=== PATIENT | male | born 1945 ===

== ENCOUNTER 2016-08-02 16:59 | Inpatient (IN) | payer MEDICARE ==
[~2016-08-02] VITALS: Ht 170.2 cm; Wt 106.6 kg
[2016-08-02] VITALS (12 sets, daily range): BP systolic 112–136; BP diastolic 59–83
--- NOTE | 2016-08-02 17:00 | NUR ---
ARRIVAL: PT TO 4 VIA EMS. PT AWAKE AND ALERT. NAD. COLOR PINK. LEFT LEG HAS VELCRO BRACE. PT PLACED ON MONITOR AND TRIAGE DONE
--- NOTE | 2016-08-02 17:15 | NUR ---
MD DR FINLEY AT BEDSIDE
--- NOTE | 2016-08-02 17:15 | NUR ---
DR TUSHAR FINLEY IN THE ED AT THIS TIME
[2016-08-02] MEDS ORDERED: NS 1000ML 1,000 ML ONE ×2 (17:22)
--- NOTE | 2016-08-02 17:25 | NUR ---
IV NS STARTED FREE FLOWING
--- NOTE | 2016-08-02 17:27 | NUR ---
OR CREW VAIBHAV MARROQUIN, CALLED OUT THE ENTIRE OR CREW
[2016-08-02] MEDS ORDERED: ROPIVACAINE ONE (17:54)
[2016-08-02] MEDS ORDERED: XYLOCAINE 2%-EPI 1:100,000 ONE (17:54)
[2016-08-02] MEDS ORDERED: ANCEF ONE (18:04)
[2016-08-02] MEDS ORDERED: LACTATED RINGERS 1,000 ML ONE (18:04)
[2016-08-02] MEDS ORDERED: NS 100ML 100 ML IV ONE (18:04)
--- NOTE | 2016-08-02 20:34 | ER.CONS ---
DATE OF SERVICE: 08/02/2016 CHIEF COMPLAINT: Painful left ankle. HISTORY OF PRESENT ILLNESS: The patient is a 70-year-old male who was on his today and fell approximately 9 feet. His injury was approximately 5-1/2 hours ago. He was seen in the [facility] and then transferred to the [facility] for further evaluation and treatment. PHYSICAL EXAMINATION: Today shows that he has swelling and tenderness both medially and laterally about the left ankle. He has a moderate degree of swelling. He has no open wounds or fracture blisters. He has got good flexion and extension of the toes with normal sensation. Dorsalis pedis pulse is 1+. IMAGING STUDIES: His x-rays show that he has a comminuted displaced left distal tib-fib fracture. ASSESSMENT: Closed left distal tib-fib fracture with moderate swelling. PLAN: The patient will be taken to the operating room for application of an external fixator and possible ORIF of the lateral malleolar fracture. The risks and hazards of the procedure have been discussed with the patient. He understands and agrees. Kayode Recio MD DR: ZONIA/christel JOB# [id number]
--- NOTE | 2016-08-02 20:40 | HPH ---
ADMIT DATE: 08/02/2016 CHIEF COMPLAINT: Painful left ankle. HISTORY OF PRESENT ILLNESS: The patient is a 70-year-old male who fell about 9 feet today off of his roof and injured the left ankle. He was initially seen in [place] and splinted and referred to the [facility] with a fracture to the left ankle. PAST MEDICAL HISTORY: Medical problems include hypertension and gout. MEDICATIONS: Listed on the chart. PREVIOUS SURGICAL PROCEDURES: Include bilateral total knee arthroplasties, right knee arthroscopy, cervical and lumbar fusions. ALLERGIES: PENICILLIN. REVIEW OF SYSTEMS: Negative for chest pain, shortness of breath, nausea, vomiting, melena, hematochezia, dysuria, hematuria, fever, chills or weight loss. FAMILY HISTORY: The patient's family history is unknown. PHYSICAL EXAMINATION: GENERAL: Reveals a healthy appearing 70-year-old male in no acute distress. HEENT: Within normal limits. CHEST: Clear to auscultation. HEART: Regular rate and rhythm. No murmurs. ABDOMEN: Soft and nontender. EXTREMITIES: The patient's left ankle has diffuse swelling. It is tender both medially and laterally. There is decreased range of motion secondary to pain. He has no open wounds and no fracture blisters. He has no areas of tenderness or deformity about the right lower extremity or the upper extremities. IMAGING STUDIES: His x-rays show that he has a comminuted displaced left distal tib-fib fracture. ASSESSMENT: Closed displaced comminuted left distal tib-fib fracture. PLAN: The patient will be taken to the operating room for application of external fixator with possible ORIF of the lateral malleolus depending on the swelling. The risks and hazards of the procedure have been discussed with the patient. He understands the risk involved and wants to proceed as planned. Kayode Recio MD DR: ZONIA/christel JOB# [id number]
[2016-08-02] MEDS ORDERED: ULTRAM PO PRN (21:00)
[2016-08-02] MEDS ORDERED: LACTATED RINGERS 1,000 ML IV SCH (21:00)
[2016-08-02] MEDS ORDERED: CEPACOL SORE THROAT LOZENGE MM PRN (21:00)
[2016-08-02] MEDS: ANCEF 3 GM in NS 1000ML 100 ML IV SCH (21:22)
[2016-08-02] MEDS ORDERED: DECADRON ONE (21:27)
[2016-08-02] MEDS ORDERED: XYLOCAINE ONE (21:27)
[2016-08-02] MEDS ORDERED: ZEMURON IV ONE (21:28)
[2016-08-02] MEDS ORDERED: DIPRIVAN IV ONE (21:29)
[2016-08-02] MEDS ORDERED: ZOFRAN ONE (21:29)
[2016-08-02] MEDS ORDERED: TORADOL ONE (21:29)
[2016-08-02] MEDS ORDERED: LACTATED RINGERS 1,000 ML IV ONE (21:30)
[2016-08-02] MEDS ORDERED: ZOFRAN IV PRN (21:30)
[2016-08-02] MEDS ORDERED: DILAUDID IV PRN (21:30)
[2016-08-02] MEDS ORDERED: SUBLIMAZE IV PRN (21:30)
--- NOTE | 2016-08-02 21:37 | DIREP ---
PROCEDURE:XRAY ANKLE MIN 3VWS-LT COMPARISON:None. INDICATIONS:postop, repair lt ankle fx FINDINGS: BONES:Comminuted distal tibial fracture with intra-articular extension stabilized by external fixation device. Lateral fibular fracture is stabilized by a plate and screws. Alignment appears anatomic JOINTS:Normal. SOFT TISSUES:Normal. OTHER:No additional findings. CONCLUSION: 1. External fixation distal tibial fracture. Internal fixation distal fibular fracture. Dictated by: Bul Gore Jr. on 08/02/2016 at 09:29 PM
--- NOTE | 2016-08-02 22:13 | NUR ---
arrival patient arrival to the floor from OR, patient state no pain at this time. patient had a left fx surgery by , patient states that he fell off his roof and got caught on his ladder on the way down, patient states that he did not even feel any pain when he fell. patient lives in [place] with his . has no history of heart problems, and has stated previous surgeries on his knees, back and neck. patient oriented to the room and given call light will cont to monitor
--- NOTE | 2016-08-02 22:14 | OPH ---
DATE OF SURGERY: 08/02/2016 PREOPERATIVE DIAGNOSIS: Closed displaced comminuted left distal tib-fib fracture (left tibial pilon fracture,). POSTOPERATIVE DIAGNOSIS: Closed displaced comminuted left distal tib-fib fracture (left tibial pilon fracture,). OPERATIVE PROCEDURES: 1. Open reduction and internal fixation left lateral malleolus fracture. 2. Application of an external fixator, left distal tibia. SURGEON: Kayode Recio MD ANESTHESIA: LMA. TOURNIQUET TIME: 50 minutes at 300 mmHg. BLOOD LOSS: 50 mL. DESCRIPTION OF INDICATIONS: The patient is a 70-year-old male who was up on a roof earlier today and fell off. He fell approximately 9 feet injuring his left ankle. He had no other injuries, no loss of consciousness. He was initially seen in the [facility] and then transferred to [place] for further evaluation and treatment. This patient's x-ray showed that he had a comminuted displaced distal tib-fib fracture. He had normal neurovascular exam. He had moderate degree of swelling and a few small fracture blisters. He was taken to the operating room for open reduction and internal fixation of the lateral malleolar fracture with application of an external fixator to hold the fracture out to length. DESCRIPTION OF PROCEDURE: This patient was placed on the operating table in the supine position. A general LMA anesthetic was induced without difficulty. The patient had the left thigh padded and a tourniquet was applied. The left lower extremity was then sterilely prepped and draped. The leg was exsanguinated with an Esmarch and then the tourniquet was inflated to 300 mmHg. The patient had the incision made about the lateral malleolus. Incision was taken through the skin and the subcutaneous tissues. The fracture was identified. It was comminuted. There was a significant amount of bone loss. We stabilized the lateral malleolar fracture with an 8-hole third tubular plate using 3.5 screws proximally and cancellous screws distally. The final AP and lateral views showed acceptable alignment of the lateral malleolar fracture. The wounds were copiously irrigated. The deep soft tissue was closed with 2-0 Monocryl in an interrupted manner. The skin was closed with interrupted 3-0 Ethilon. The patient then had an external fixator placed about the tibia. We made 2 small incisions proximally on the anteromedial edge of the tibia and placed two 5 mm Schanz threaded pins through the cortex. We then placed a transcalcaneal threaded pin. The position of the pins were felt to be acceptable. We then constructed a triangular type frame. A third pin was then placed at the base of the second metatarsal through a small stab wound and then the foot was placed at neutral dorsiflexion and the pin was attached to the frame. Once all the bolts about the frame were satisfactorily tightened the final AP and lateral views showed satisfactory alignment of the fracture. The wounds about the pin tracks were covered with Betadine-soaked gauze. The lateral malleolar wound was covered with an Adaptic and some 4 x 8's. A compressive dressing consisting of Kerlix, ABD pads and Odilon wraps were then applied. The patient was extubated in the operating room, sent to recovery in stable condition. Kayode Recio MD DR: ZONIA/christel JOB# [id number]
--- NOTE | 2016-08-03 00:13 | PRM.ACF1 ---
Admission Criteria Forms MUSCULOSKELETAL DISEASE GRG Clinical Indications for Admission to Inpatient Care (Place 'X' for any and all applicable criteria): Hospital admission is needed for appropriate care of the patient because of ANY ONE of the following: [X]I. Fracture, dislocation, or other musculoskeletal injury requiring inpatient care(medical) as indicated by ANY ONE of the following(4)(5)(6)(7) [ ]a) Vertebral fracture requiring observation for instability or neurologic compromise (8) [ ]b) Compartment syndrome (proven or cannot be ruled out during observation level of care) (9) [ ]c) Limb-threatening injury [ ]d) Major injury requiring inpatient stabilization such as traction initiation or external fixation before internal fixation or closure of complex or open fracture [X]e) Major injury requiring inpatient treatment after emergency or observation level care (as appropriate) [ ]f) Severe pain requiring acute inpatient management [ ]II. Newly diagnosed or suspected bone, joint, or orthopedic device infection (e.g., osteomyelitis, septic arthritis) needing ANY ONE of the following(1)(2)(3) [ ]a) IV antibiotics that cannot be initiated in other than inpatient setting (e.g., patient too unstable or home infusion not available) [ ]b) Device removal or replacement [ ]c) Bone or soft tissue debridement [ ]d) Joint drainage (drain placement or repetitive aspirations) [ ]III. Severe rheumatologic disease (e.g., systemic lupus erythematosus, rheumatoid arthritis) with complications or comorbidities (Also use Optimal Recovery Care Criteria or General Recovery Criteria as appropriate on the basis of predominant condition), including ANY ONE of the following(10 )(11)(12)(13) [ ]a) Severe infection (e.g., SU[employer]VISOR [employer] infection, sepsis) (14) [ ]b) Respiratory complications, including ANY ONE of the following: [ ]i) Pleural effusion with respiratory compromise [ ]ii) Pulmonary hypertension with congestive failure [ ]iii) Respiratory failure [ ]iv) Pulmonary hemorrhage (15) [ ]c) Hematologic disease, including ANY ONE of the following: [ ]i) Coagulopathy with bleeding [ ]ii) Thrombosis with hypercoagulable state [ ]iii) Thrombotic thrombocytopenic purpura [ ]d) Cerebritis with seizures, psychosis, or other severe abnormalities [ ]e) Vertebral destruction with monitoring needed for cervical myelopathy& possible respiratory compromise [ ]f) Exacerbation that requires inpatient treatment (e.g., intravenous immunosuppression) (16) [ ]g) Acute renal failure [ ]IV. Severe vasculitis with complications or comorbidities (Also use Optimal Recovery Care Criteria or General Recovery Criteria as appropriate on the basis of predominant condition), including ANY ONE of the following(11)(12)(17)(18)(19)(20) [ ]a) SUPERVISOR C[employer]ING vasculitis with seizures, psychosis, or other severe abnormalities (22) [ ]b) Renal failure (16) [ ]c) Pulmonary hemorrhage (15) [ ]d) Cerebral infarction [ ]e) Gastrointestinal ischemia [ ]f) Gangrene or threatened amputation [ ]g) Exacerbation that requires inpatient treatment (e.g., intravenous immunosuppression) (19)(21) [ ]V. Severe myopathy as indicated by ANY ONE of the following (28)(29) [ ]a) New onset of airway compromise or inability to swallow [ ]b) Respiratory deterioration with observation needed for impending respiratory failure [ ]c) Exacerbation that requires inpatient treatment (e.g., intravenous immunosuppression) [ ]. Severe gout (crystal arthropathy) as indicated by ANY ONE of the following (23)(24) [ ]a) Severe pain requiring acute inpatient management [ ]b) Exacerbation that requires inpatient treatment (e.g., intravenous treatment) [ ]VII.Rhabdomyolysis and ANY ONE of the following (25)(26)(27) [ ]a) Acute renal failure [ ]b) Need for intravenous hydration after emergency or observation level care (as appropriate) [ ]c) Inability to maintain oral hydration [ ]d) Change in mental status [ ]e) Electrolyte abnormality that remains after emergency or observation level care (as appropriate) [ ]VIII Post amputation complication, as indicated by ANY ONE of the following [ ]a) Infection [ ]b) Dehiscence [ ]c) Myodesis failure [ ]IX. Severe pain requiring acute inpatient management as indicated by ALL of the following (30)(31)(32) [ ]a) Continuous or frequent (e.g., every 2 to 4 hrs) parenteral analgesics required [A] [ ]b) Rapid improvement expected from treatment or acute intervention ( e.g., surgery, anesthesia procedure[B] [ ]X. Musculoskeletal Disease and ALL of the following: [ ]a) Symptom or finding for which emergency and observation care have failed or are not considered appropriate (Use General Criteria: Observation Care as appropriate) [ ]b) Presence of ANY ONE of the following [ ]i) A General Admission Criteria [ ]ii) A Pediatric General Admission Criteria The original [facility] content created by [facility] has been revised. The portions of the content which have been revised are identified through the use of italic text or in bold, and [facility] has neither reviewed nor approved the modified material. All other unmodified content is copyright [facility]. Please see references footnoted in the original [facility] edition 2016 Is [facility] added/comple: YES ELISABET SANTAMARIA [facility] Aug 03, 2016 00:13
[2016-08-03 04:05] VITALS: BP 121/76
[2016-08-03] MEDS ORDERED: ANCEF ONE ×3 (05:28→14:15)
[2016-08-03] MEDS ORDERED: LACTATED RINGERS 1,000 ML ONE (05:29)
[2016-08-03] MEDS ORDERED: NS 100ML 100 ML IV ONE ×3 (05:29→14:26)
[2016-08-03] MEDS: ANCEF 3 GM in NS 1000ML 100 ML IV SCH ×2 (05:48→14:21)
[2016-08-03 06:04] LABS: HEMATOCRIT 38.2 % (37.0-53.0); HEMOGLOBIN 12.9 g/dL (13.9-16.3); MEAN CELL HGB 29.5 pg (26-34); MEAN CELL HGB CONCENTRATION 33.8 g/dL (33-37); MEAN CORP VOLUME 87.4 fL (78-100); MEAN PLATELET VOLUME 10.9 fL (7.8-11.0); RED BLOOD CELL 4.37 10^6/uL (4.50-5.90); RED CELL DISTRIBUTION WIDTH 14.9 % (11.5-14.5); WHITE BLOOD CELL 13.5 10^3/uL (4.5-11.0)
[2016-08-03 08:10] VITALS: BP 111/68
[2016-08-03] MEDS: COLACE PO SCH (09:23)
[2016-08-03] MEDS: PEPCID PO SCH (09:23)
--- NOTE | 2016-08-03 12:11 | PRM.PN ---
Subjective Subjective Subjective Awake and alert VSS No pain HGB =12 Has some active ROM of toes Stable Start PT Patient History: VTE VTE Risk Total Score: 5 VTE Risk Score VTE Risk: Score 0-1 = Low Risk (Aggressive mobilization; early ambulation; no VTE prophylaxis required) Score 2: Moderate Risk (Intermittent/Pneumatic Compression Device OR Lovenox/Heparin/Coumadin) Score 3-4: High Risk (Intermittent/Pneumatic Compression Device AND Lovenox/Heparin/Coumadin) Score > or =5: Highest Risk (Intermittent/Pneumatic Compression Device AND Lovenox/Heparin/Coumadin) Review of Systems Allergies: Coded Allergies: codeine (Verified Allergy, Unknown, upset stomach, 08/02/16) morphine (Verified Adverse Reaction, Unknown, 08/02/16) Hallucinations Objective Vitals and I/O Vital Sign - Last 24 Hours 08/02/16 08/02/16 08/02/16 08/02/16 17:04 17:09 17:09 17:50 Temp 97.9 97.9 97.9 Pulse 76 76 83 Resp 20 20 20 20 B/P 129/70 132/73 Pulse Ox 97 97 96 08/02/16 08/02/16 08/02/16 08/02/16 17:57 18:02 18:05 20:54 Temp 98.0 Pulse 88 93 88 79 Resp 18 18 18 18 B/P 131/74 131/65 123/65 122/71 Pulse Ox 96 97 97 98 O2 Delivery Room Air Room Air Room Air Nasal Canula 08/02/16 08/02/16 08/02/16 08/02/16 20:54 20:59 21:04 21:09 Temp 98.2 Pulse 78 80 82 Resp 18 18 18 B/P 127/75 136/70 134/78 Pulse Ox 98 98 96 O2 Delivery Nasal Canula Nasal Canula Nasal Canula O2 Flow Rate 3 08/02/16 08/02/16 08/02/16 08/02/16 21:14 21:19 21:24 21:50 Temp 98.4 Pulse 78 78 77 Resp 18 18 18 B/P 131/71 132/78 132/83 Pulse Ox 97 96 98 O2 Delivery Nasal Canula Nasal Canula Nasal Canula Nasal Cannula 08/02/16 08/02/16 08/02/16 08/03/16 21:51 22:00 23:56 04:05 Temp 97.5 97.7 97.9 Pulse 77 73 68 Resp 18 18 18 B/P 128/69 112/59 121/76 Pulse Ox 95 97 98 O2 Delivery Nasal Canula Nasal Cannula 08/03/16 08/03/16 08/03/16 08:10 08:57 10:21 Temp 97.6 Pulse 76 Resp 17 B/P 111/68 Pulse Ox 100 100 O2 Delivery Nasal Canula Nasal Cannula Nasal Cannula O2 Flow Rate 2.00 2.00 FiO2 28 Intake and Output 08/02/16 08/02/16 08/03/16 15:00 23:00 07:00 Intake Total 4000 ml 3100 ml Output Total 820 ml Balance 4000 ml 2280 ml ANGELA FINLEY MD Aug 03, 2016 12:11
[2016-08-03 13:55] VITALS: BP 121/68
--- NOTE | 2016-08-03 15:33 | PRM.PN ---
Post-Anesthesia Eval Note Post-Anesthesia Eval Note Vital signs in patient's audie: Yes Respiratory function stable; a: Yes Cardiovascular function and hy: Yes Mental status recovered: patie: Yes Pain control satisfactory: Yes Nausea and vomiting control sa: Yes Receiving long-acting regional: Yes Comments Pt reports satisfaction, in fact, "great" satisfaction, with anesthesia care and pain management JUSTIN REYNA [employer] Aug 03, 2016 15:33
--- NOTE | 2016-08-03 15:37 | NUR ---
PT pt ambulated from bed to chair with walker. pt tolerated well. no c/o pain or discomfort. Pt in chair at this time
--- NOTE | 2016-08-03 16:37 | NUR ---
STATUS PT IN RECLINER. DOES NOT C/O PAIN OR DISCOMFORT AT THIS TIME.
--- NOTE | 2016-08-03 18:30 | NUR ---
report report recieved took over care
[2016-08-03 20:39] VITALS: BP 108/69
[2016-08-03] MEDS: LOVENOX SQ SCH (21:02)
[2016-08-04 04:50] VITALS: BP 116/69
[2016-08-04] MEDS: ULTRAM PO PRN ×3 (05:29→13:31)
--- NOTE | 2016-08-04 06:25 | NUR ---
report gave report relinquished care
--- NOTE | 2016-08-04 06:30 | NUR ---
Report Received report and assumed care of pt.
--- NOTE | 2016-08-04 08:36 | PRM.PN ---
Subjective Subjective Subjective Awake and alert Pain ok Up in room with walker, NWB on left Afebrile, VSS Patient History: VTE VTE Risk Total Score: 5 VTE Risk Score VTE Risk: Score 0-1 = Low Risk (Aggressive mobilization; early ambulation; no VTE prophylaxis required) Score 2: Moderate Risk (Intermittent/Pneumatic Compression Device OR Lovenox/Heparin/Coumadin) Score 3-4: High Risk (Intermittent/Pneumatic Compression Device AND Lovenox/Heparin/Coumadin) Score > or =5: Highest Risk (Intermittent/Pneumatic Compression Device AND Lovenox/Heparin/Coumadin) Review of Systems Allergies: Coded Allergies: codeine (Verified Allergy, Unknown, upset stomach, 08/02/16) morphine (Verified Adverse Reaction, Unknown, 08/02/16) Hallucinations Objective Vitals and I/O Vital Sign - Last 24 Hours 08/03/16 08/03/16 08/03/16 08/03/16 08:57 10:21 13:55 20:39 Temp 98.4 Pulse 79 Resp 18 B/P 121/68 Pulse Ox 100 100 O2 Delivery Nasal Cannula Nasal Cannula Room Air Nasal Cannula O2 Flow Rate 2.00 2.00 2.00 FiO2 28 08/03/16 08/03/16 08/03/16 08/04/16 20:39 21:58 23:00 04:50 Temp 98.5 98.7 Pulse 81 77 70 Resp 18 14 18 B/P 108/69 116/69 Pulse Ox 97 92 70 O2 Delivery Nasal Canula Room Air Nasal Cannula O2 Flow Rate 2.00 Intake and Output 08/03/16 08/03/16 08/04/16 15:00 23:00 07:00 Intake Total 4818 ml 2900 ml Output Total 2175 ml 650 ml Balance 2643 ml 2250 ml Assessment/Plan Assessment/Plan Plan Will d/c home today Continue to be NWB on left with walker Continue to elevate left ankle as much as possible Prescription written for Tramadol Advised to take ASA 81mg BID Appt. in office next Thursday with ROBBIN Moore Aug 04, 2016 08:36
[2016-08-04] MEDS: LOVENOX SQ SCH (08:54)
[2016-08-04] MEDS: PEPCID PO SCH (08:54)
[2016-08-04] MEDS: COLACE PO SCH (08:54)
--- NOTE | 2016-08-04 08:55 | NUR ---
DISCHARGE PLANNING: SS AND CM VISITED WITH PT CONCERNING DISCHARGE PLANNING NEED. PT LIVES HOME WITH HIS IN [place], [place]. PT IS VERY INDEPENDENT ON ADLS, AND STILL DRIVES DAILY. PT HAS A WALKER, WHEEL CHAIR, AND SHOWER CHAIR IN THE HOME HE CAN USE. CM/SS VISITED WITH PT REGARDING HOME HEALTH SERVICES AND BENEFITS VERSUS GOING TO A SWING BED OR SNF. PT SATED HE WANTED TO GO HOME AND HAS USED [facility] FROM [facility] [place] IN THE PAST AND WOULD LIKE TO USE THEM AGAIN. CHOICE LETTER, PRESENTED, SIGNED AND PLACED IN PT'S CHART. Vin SOTO FROM [facility] NOTIFIED OF THE REFERRAL AND INFORMATION FAXED OVER. NO FURTHER DISCHARGE NEEDS NOTED OR IDENTIFIED AT THIS TIME. PT SAFETY HANDOUT ADDRESSED, NO QUESTIONS ASKED, UNDERSTANDING VERBALIZED. CM/SS TO CONTINUE TO MONITOR AND ASSIST WITH DISCHARGE PLANNING NEEDS.
[2016-08-04 08:58] VITALS: BP 116/68
[2016-08-04] MEDS ORDERED: TRAM50TA PO (09:14)
--- NOTE | 2016-08-04 13:37 | NUR ---
Discharge Discharge education given to pt. Educated pt on new pain medication. Pt able to verbalize understanding. Educated pt on importance of follow up appt. Pt able to verbalize understanding. Answered all pt questions. Pt denies further questions or concerns. Removed IV. No bleeding, redness, heat, edema, or pain noted. Covered site with cotton ball and band aid. Transferred pt off unit via wheelchair to personal vehicle. No s/s of distress noted.
--- NOTE | 2016-08-07 14:15 | DSH ---
DATE OF DISCHARGE: 08/04/2016 ADMITTING DIAGNOSIS: Fracture of the left distal tib-fib. OTHER DIAGNOSES: Include hypertension and gout. DISCHARGE DIAGNOSIS: Fracture of the left distal tib-fib. OPERATIVE DATE: 08/02/2016. PROCEDURES PERFORMED: Open reduction and internal fixation about the left lateral malleolus fracture as well as an application of an external fixator to the left distal tibia. CONSULTATIONS: None. SUMMARY OF ADMISSION: This is a 70-year-old male who was up on a roof on 08/02/2016 and fell off. He fell approximately 9 feet injuring his . He was initially seen in [facility] and he was transferred to [place] for further evaluation and treatment. His X-rays did show a comminuted displaced distal tib-fib fracture and he was taken to the operating room on 08/02/2016 for an ORIF about her lateral malleolar fracture as well as an application of an external fixator to hold the distal tibia fracture . The patient tolerated the procedure very well. Postoperatively, he has been awake and alert. His vital signs have been stable. He has been on a regular diet and tolerating it well. He has had physical therapy and occupational therapy while in the hospital. Currently, he is fairly independent with transfers as well as with ambulation with the walker. He is nonweightbearing on that left side. His pain has been controlled with tramadol. He has also been on Lovenox 40 mg subcutaneous injections once daily as well as foot pumps, SCDs and early ambulation for DVT prophylaxis. On 08/04/2016, he continued to do well with physical therapy. He will be discharged home today. He will continue to use his walker and be nonweightbearing on that left side. He was advised to elevate his left ankle above his heart as much as possible to help with swelling. He was given a prescription for tramadol 50 mg to take 1 to 2 tablets every 4-6 hours as needed for the pain. He was also advised a take a baby aspirin twice a day for 1 month and he will follow up in the clinic this coming up Thursday. REINALDO Taylor DR: CHACE/christel JOB# [id number]
== END 2016-08-04 13:59 | disposition home health service (06) | DRG 494 ==
LOC: ER 16:59 → MS 17:23
PROVIDERS: ADMIT Orthopaedic Surgery; ATTEND Orthopaedic Surgery
PROC: 0QHH05Z Insertion of External Fixation Device into Left Tibia, Open Approach (ICD-10-PCS; 2016-08-02)
PROC: 0QSK04Z Reposition Left Fibula with Internal Fixation Device, Open Approach (ICD-10-PCS; principal; 2016-08-02 18:16)
DX: S82.872A Displaced pilon fracture of left tibia, initial encounter for closed fracture (principal); I10 Essential (primary) hypertension; M10.9 Gout, unspecified; Z96.653 Presence of artificial knee joint, bilateral; W17.89XA Other fall from one level to another, initial encounter; Y92.009 Unspecified place in unspecified non-institutional (private) residence as the place of occurrence of the external cause; Y93.89 Activity, other specified; Y99.8 Other external cause status; Z98.1 Arthrodesis status; Z88.8 Allergy status to other drugs, medicaments and biological substances
CPT/HCPCS: 36415; 76000; 85027; 97161; 97166; 99285; J0690; J1100; J1650; J1885; J2405; J3490; J7030; J7120; 73610-LT; 97116-GP; G8978-CK; G8979-CJ; G8980-CJ; G8987; G8988-CL; J2795